=== PATIENT | female | born 1970 | race African-American/Black ===

== ENCOUNTER 2022-04-29 03:18 | Inpatient (IN) | payer OTHER ==
[~2022-04-29] VITALS: Ht 162.6 cm; Wt 70.5 kg
[2022-04-29 04:12] LABS: Basophils # (auto) 0.1 10 ^3/uL (0-0.2); Basophils % (auto) 1.5 % (0.0-2.0); Eosinophils # (auto) 0.1 10 ^3/uL (0-0.8); Eosinophils % (auto) 1.8 % (0.0-7.0); Lymphocytes # (auto) 2.7 10 ^3/uL (0.4-5.4); Lymphocytes % (auto) 36.4 % (10.0-50.0); Mean Corpuscular Hgb Conc. 32.6 g/dL (32.0-36.0); Mean Corpuscular Volume 92.2 fL (80.0-100.0); Monocytes # (auto) 0.6 10 ^3/uL (0-1.3); Monocytes % (auto) 8.7 % (0.0-12.0); Neutrophils # (auto) 3.8 10 ^3/uL (1.6-8.6); Neutrophils % (auto) 51.6 % (37.0-80.0); Nucleated Red Blood Cells % 0.1 %; Red Blood Cells 4.66 10^6/uL (4.0-5.20); Red Cell Distribution Width 14.6 % (11.8-14.3); White Blood Cell 7.3 10^3/uL (4.4-10.8)
[2022-04-29 04:32] LABS: Albumin 3.7 g/dL (3.4-5.0); Calcium 9.9 mg/dL (8.5-10.1)
[2022-04-29 04:35] LABS: Bilirubin, Total 0.2 mg/dL (0.2-1.0); Total Protein 7.8 g/dL (6.4-8.2)
[2022-04-29] MEDS ORDERED: SODIUM CHLORIDE 0.9% 1,000 ML IV ONE (05:00)
[2022-04-29] MEDS ORDERED: ACETAMINOPHEN 325 MG TAB PO ONE (05:15)
[2022-04-29] MEDS ORDERED: ACETAMINOPHEN 500 MG TAB PO PRN (05:30)
[2022-04-29] MEDS ORDERED: ONDANSETRON HCL 4 MG/2 ML VIAL IV PRN (05:30)
[2022-04-29] MEDS ORDERED: APIX5TAB PO ×2 (05:49→06:04)
[2022-04-29] MEDS ORDERED: LORA-622 PO (05:49)
[2022-04-29] MEDS ORDERED: POTA1TAB61 PO (05:49)
[2022-04-29] MEDS ORDERED: METO25TA5 PO ×2 (05:49→06:10)
[2022-04-29] MEDS ORDERED: HYDR25TA4 PO ×2 (05:49→06:10)
[2022-04-29] MEDS ORDERED: MELO1TAB56 PO (05:49)
[2022-04-29] MEDS: SODIUM CHLORIDE 0.9% 1,000 ML IV ONE ×2 (06:00→07:05)
[2022-04-29] MEDS ORDERED: POTASSIUM CHL 10 Meq TABLET PO SCH (10:00)
[2022-04-29] MEDS ORDERED: MELOXICAM 15 MG PO SCH (10:00)
[2022-04-29] MEDS: METOPROLOL TARTRATE 25 MG TAB PO SCH ×2 (10:00→22:22)
[2022-04-29] MEDS ORDERED: APIXABAN 5 MG TAB PO SCH (10:00)
[2022-04-29] MEDS: LORATADINE 10 MG TAB PO SCH (10:36)
[2022-04-29] MEDS: APIXABAN 5 MG TAB PO SCH ×2 (10:36→22:22)
[2022-04-29] MEDS: HCTZ 25 MG TAB PO SCH (10:36)
[2022-04-29 11:18] VITALS: BP 128/93
[2022-04-29] MEDS ORDERED: AMLO-489 PO (11:34)
[2022-04-29] MEDS ORDERED: RIME75TA PO (12:49)
[2022-04-29 13:14] VITALS: BP 128/93
[2022-04-29 13:15] VITALS: BP 134/99
[2022-04-29 13:16] VITALS: BP 142/95
[2022-04-29 14:45] LABS: Urine Bacteria NONE SEEN /hpf (None Seen); Urine Blood Negative /uL (Negative); Urine Specific Gravity 1.004 (1.001-1.035); Urine WBC 10 /hpf (0 - 5)
[2022-04-29] MEDS ORDERED: GADOTERATE MEG 7.5 MMOL/15ml INJ (0.5MMOL/ml) IV ONE (16:34)
[2022-04-29 16:59] VITALS: BP 124/84
[2022-04-29 22:00] VITALS: BP 113/63
[2022-04-30 05:00] VITALS: BP_SYST 103; BP_SYST 120; BP_SYST 89; BP_DIAS 62; BP_DIAS 79; BP_DIAS 86
[2022-04-30 05:45] LABS: Basophils # (auto) 0 10 ^3/uL (0-0.2); Basophils % (auto) 0.7 % (0.0-2.0); Eosinophils # (auto) 0.2 10 ^3/uL (0-0.8); Eosinophils % (auto) 2.7 % (0.0-7.0); Hematocrit 43.6 % (36.0-46.0); Hemoglobin 14.6 g/dL (12.2-16.2); Lymphocytes % (auto) 45.8 % (10.0-50.0); Mean Corpuscular Hemoglobin 30.7 pg (28.0-32.0); Mean Corpuscular Hgb Conc. 33.5 g/dL (32.0-36.0); Mean Corpuscular Volume 91.8 fL (80.0-100.0); Monocytes # (auto) 0.5 10 ^3/uL (0-1.3); Monocytes % (auto) 7.8 % (0.0-12.0); Neutrophils # (auto) 2.8 10 ^3/uL (1.6-8.6); Nucleated Red Blood Cells % 0.1 %; Red Blood Cells 4.75 10^6/uL (4.0-5.20); Red Cell Distribution Width 14.4 % (11.8-14.3); White Blood Cell 6.5 10^3/uL (4.4-10.8)
[2022-04-30 07:17] LABS: Albumin 3.7 g/dL (3.4-5.0); BUN/Creatinine Ratio 19.6; Bilirubin, Total 0.4 mg/dL (0.2-1.0); Total Protein 8.4 g/dL (6.4-8.2)
[2022-04-30 09:00] VITALS: BP 88/59
[2022-04-30] MEDS: HCTZ 25 MG TAB PO SCH (09:59)
[2022-04-30] MEDS: APIXABAN 5 MG TAB PO SCH ×2 (10:00→22:53)
[2022-04-30] MEDS: LORATADINE 10 MG TAB PO SCH (10:00)
[2022-04-30] MEDS: METOPROLOL TARTRATE 25 MG TAB PO SCH (10:00)
[2022-04-30] MEDS ORDERED: SODIUM CHLORIDE 0.9% 1,000 ML IV SCH (11:15)
[2022-04-30] MEDS ORDERED: SODIUM CHLORIDE 0.9% 500 ML IV ONE (12:00)
[2022-04-30 13:00] VITALS: BP 82/59
[2022-04-30 17:00] VITALS: BP_SYST 102; BP_SYST 113; BP_SYST 114; BP_SYST 121; BP_DIAS 68; BP_DIAS 83; BP_DIAS 89; BP_DIAS 90
[2022-04-30 22:00] VITALS: BP 113/81
[2022-05-01 05:00] VITALS: BP_SYST 104; BP_SYST 106; BP_SYST 96; BP_DIAS 69; BP_DIAS 80
[2022-05-01 05:33] LABS: Basophils # (auto) 0.1 10 ^3/uL (0-0.2); Basophils % (auto) 0.8 % (0.0-2.0); Eosinophils # (auto) 0.1 10 ^3/uL (0-0.8); Eosinophils % (auto) 2.2 % (0.0-7.0); Hematocrit 43.1 % (36.0-46.0); Hemoglobin 14.3 g/dL (12.2-16.2); Lymphocytes # (auto) 3.2 10 ^3/uL (0.4-5.4); Lymphocytes % (auto) 50.7 % (10.0-50.0); Mean Corpuscular Hemoglobin 30.3 pg (28.0-32.0); Mean Corpuscular Hgb Conc. 33.1 g/dL (32.0-36.0); Mean Corpuscular Volume 91.5 fL (80.0-100.0); Monocytes # (auto) 0.5 10 ^3/uL (0-1.3); Monocytes % (auto) 8.5 % (0.0-12.0); Neutrophils # (auto) 2.4 10 ^3/uL (1.6-8.6); Neutrophils % (auto) 37.8 % (37.0-80.0); Red Blood Cells 4.71 10^6/uL (4.0-5.20); Red Cell Distribution Width 14.4 % (11.8-14.3); White Blood Cell 6.3 10^3/uL (4.4-10.8)
[2022-05-01 05:50] LABS: Potassium 3.7 mmol/L (3.5-5.1)
[2022-05-01 06:00] LABS: Albumin 3.5 g/dL (3.4-5.0); BUN/Creatinine Ratio 16.2; Bilirubin, Total 0.3 mg/dL (0.2-1.0); Calcium 9.2 mg/dL (8.5-10.1); Total Protein 8.1 g/dL (6.4-8.2)
[2022-05-01 09:00] VITALS: BP_SYST 103; BP_SYST 104; BP_SYST 114; BP_DIAS 72; BP_DIAS 77
[2022-05-01] MEDS: LORATADINE 10 MG TAB PO SCH (10:05)
[2022-05-01] MEDS: APIXABAN 5 MG TAB PO SCH (10:05)
[2022-05-01] MEDS ORDERED: ATOR20TA PO (10:29)
[2022-05-01 12:19] VITALS: BP 104/72
== END 2022-05-01 13:20 | disposition home or self-care (01) | DRG 48 ==
LOC: ER 03:18 → EDBD 03:18 → TELE 05:44 → TELE-WESTW 10:52
PROVIDERS: ADMIT Internal Medicine; ATTEND Internal Medicine
DX: G90.8 Other disorders of autonomic nervous system (principal); I95.9 Hypotension, unspecified; E86.0 Dehydration; I10 Essential (primary) hypertension; Z20.822 Contact with and (suspected) exposure to COVID-19; Z79.01 Long term (current) use of anticoagulants; Z79.899 Other long term (current) drug therapy; Z86.711 Personal history of pulmonary embolism; Z90.710 Acquired absence of both cervix and uterus
CPT/HCPCS: 36415; 70450; 70551; 71045; 72142; 80053; 80061; 81001; 83036; 84484; 85025; 93005; 93306; 93970; 96360; 96361; G0378